=== PATIENT | female | born 2000 | race Caucasian/White ===

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

== ENCOUNTER 2022-09-19 20:25 | Emergency (ER) | payer MEDICAID, OTHER ==
[~2022-09-19] VITALS: Ht 157.5 cm; Wt 73.0 kg
[2022-09-19 20:34] VITALS: BP 130/85
[2022-09-19] MEDS ORDERED: HYDR-3735 MT (20:45)
== END 2022-09-19 22:09 | disposition home or self-care (01) ==
LOC: ER 20:25
DX: I10 Essential (primary) hypertension (principal); F41.9 Anxiety disorder, unspecified; Z00.00 Encounter for general adult medical examination without abnormal findings
CPT/HCPCS: 81025; 93005; 99283